=== PATIENT | female | born 1955 | race Caucasian/White ===

== ENCOUNTER → 2019-08-27 | Outpatient (CLI) | payer BC ==
--- NOTE | 2019-08-30 14:17 | Diagnostic Imaging Report ---
INDICATION: Routine screening. Comparison is made with prior mammogram from 03/22/2013 08/05/2011. 2-D and 3-D bilateral screening mammography was performed with CAD. Both breasts remain heterogeneously dense, limiting the sensitivity of mammography. Innumerable calcifications are noted throughout both breasts, limiting the study. A biopsy clip in the outer left breast is noted. No discrete mass is identified. Axillae are unremarkable. IMPRESSION: BI-RADS Category 2 No mammographic features suspicious for malignancy are identified. ACR BI-RADS Category 2: Benign findings. Result letter will be mailed to the patient. Note: At least 10% of breast cancer is not imaged by mammography. Dictated by: Dictated on workstation # [id number]
== END ==
LOC: RAD 08:48
PROVIDERS: ATTEND Family Medicine
DX: Z12.31 Encounter for screening mammogram for malignant neoplasm of breast (principal)
CPT/HCPCS: 77067

== ENCOUNTER → 2022-09-04 | Outpatient (CLI) | payer MEDICARE, OTHER ==
--- NOTE | 2022-09-04 15:58 | Diagnostic Imaging Report ---
INDICATION: RT SHOULDER PAIN COMPARISON: None. FINDINGS: 2 views of the right shoulder were obtained. There is no fracture, dislocation, or other acute bony abnormality identified. The soft tissues appear unremarkable. No radiopaque foreign body is identified. The visualized portions of the right lung are clear. IMPRESSION: No acute fractures or dislocations of the right shoulder. Dictated by: Dictated on workstation # [id number]
== END ==
LOC: RAD 13:22
PROVIDERS: ATTEND Family Medicine
DX: M25.511 Pain in right shoulder (principal)
CPT/HCPCS: 73030

== ENCOUNTER → 2022-09-10 | Outpatient (CLI) | payer MEDICARE, OTHER ==
--- NOTE | 2022-09-10 14:54 | Diagnostic Imaging Report ---
EXAMINATION: Magnetic resonance imaging of the right shoulder without contrast. DATE: September 10, 2022. COMPARISON: Right shoulder radiographs September 04, 2022. HISTORY: 67-year-old female, right shoulder pain. TECHNIQUE: Magnetic Resonance Imaging sequences were performed of the shoulder without contrast. FINDINGS: ROTATOR CUFF, LIGAMENTS, TENDONS, AND MUSCLES: There is an interstitial split tear of subscapularis. The supraspinatus, infraspinatus, and teres minor tendons are intact. There is normal rotator cuff muscle bulk and signal. LONG HEAD OF BICEPS: There is proximal long head of biceps tendinopathy. The proximal long head of biceps tendon is perched on the lesser tuberosity. GLENOHUMERAL JOINT: The humeral head is very mildly posteriorly subluxed. There is no discretely identified labral tear. There is no identified paralabral cyst. There are broad areas of full-thickness cartilage loss involving the mid posterior glenoid and mild cartilage loss of the anterior glenoid. There is no joint effusion. ACROMIOCLAVICULAR JOINT: The acromioclavicular joint is normally aligned. The coracoclavicular and coracoacromial ligaments are intact. There are mild acromioclavicular degenerative changes with 1 to 2 mm undersurface osteophytes. BONE: There is no os acromiale. There is no Hill-Sachs deformity. There is degenerative related edema in the mid to posterior glenoid. There is no acute fracture, bone contusion, or evidence of osteonecrosis. There is degenerative related edema adjacent to the acromioclavicular joint. BURSAE AND SOFT TISSUES: The bursae and soft tissue surrounding the shoulder are unremarkable. IMPRESSION: 1. Interstitial tear of the subscapularis tendon. 2. Proximal long head of biceps tendinopathy which is perched on the lesser tuberosity. 3. Mild acromioclavicular degenerative changes with 1 to 2 mm undersurface osteophytes. 4. Moderate to severe glenohumeral osteoarthritis. No discretely identified labral tear or paralabral cyst. No glenohumeral joint effusion. 5. No acute fracture, bone contusion, or evidence of osteonecrosis. Dictated by: Dictated on workstation # [id number]
== END ==
LOC: RAD 13:26
PROVIDERS: ATTEND Family Medicine
DX: M19.011 Primary osteoarthritis, right shoulder (principal); S46.811A Strain of other muscles, fascia and tendons at shoulder and upper arm level, right arm, initial encounter; X58.XXXA Exposure to other specified factors, initial encounter
CPT/HCPCS: 73221